=== PATIENT | female | born 2000 | race Two or more races ===

== ENCOUNTER 2025-05-10 16:56 | Emergency (ER) | payer OTHER ==
[2025-05-10] MEDS: Prochlorperazine 10 MG/2 ML SDV IVPUSH ONE (19:21)
[2025-05-10] MEDS: Ketorolac 15 MG/ML SDV IVPUSH ONE (19:24)
[2025-05-10] MEDS: diphenhydrAMINE 50 MG/ML SDV IVPUSH ONE (19:26)
[2025-05-10 19:34] LABS: APPEARANCE,URINE CLEAR (CLEAR); GLUCOSE,URINE NEGATIVE (NEGATIVE); OCCULT BLOOD,URINE TRACE-LYSED (NEGATIVE)
[2025-05-10 19:49] LABS: SQUAMOUS EPITHELIAL CELLS,UR FEW /HPF; UROTHELIAL CELLS,URINE NOT SEEN /HPF
== END 2025-05-10 21:20 | disposition home or self-care (01) ==
LOC: JP.ED 16:56
DX: G43.909 Migraine, unspecified, not intractable, without status migrainosus (principal); Z79.899 Other long term (current) drug therapy
CPT/HCPCS: 81001; 96361; 96374; 96375; 99283; 99284; J0780; J1200; J1885; J7030